=== PATIENT | female | born 1945 | race Caucasian/White ===

== ENCOUNTER 2017-03-01 06:52 | Outpatient (CLI) | payer MEDICARE, OTHER ==
[~2017-03-01] VITALS: Ht 167.6 cm; Wt 100.6 kg
--- NOTE | ~2017-03-01 | CATH ---
Cardiac Diagnostic Report Demographics Patient Name ANGELIQUE Martínez Gender Female Date of 1945 Age 71 year(s) Patient Number [id number] Date of Study 03/01/2017 Visit Number [id number] Room Number G6399 [place] [id number] Ht 167.64 cm Wt 100.6 kg Referring Magdarl Dumontmy Primary Physician Physician ILSE Performing Efstratiou Secondary Physician Physician Lucita June MD Diagnostic Efstratiou Assisting Physician Physician Lucita June MD Interventional Physician Inspector And Sorter Physician Findings and Conclusions Diagnostic Findings and Conclusion Diffuse Moderate CAD Diagnostic Recommendations Medical Treatment Procedure Description The patient was brought to the diagnostic cardiac catheterization-EP laboratory in the fasting, non-sedated state. Informed consent was obtained in the written and verbal form after the risks and benefits were explained. The patient had no further questions and agreed to proceed. The planned puncture-incision site(s) were shaved and prepped with ChloraPrep and draped in the usual sterile manner. Conscious sedation, supplemental oxygen, and pain control medications were delivered by a registered nurse under physician guidance. Surface ECG rhythm, blood pressure measurement, and pulse oximetry were monitored throughout the procedure. Arterial access. The access site was infiltrated with lidocaine. The vessel was entered with the Seldinger technique. A sheath was advanced into the vessel and used for catheter placement. Selective left coronary angiography. A catheter was advanced into the left coronary vessel ostium under Fluoroscopic guidance. Contrast was injected by hand. Images were obtained in multiple projections. Selective right coronary angiography. A catheter was advanced into the right coronary vessel ostium under fluoroscopic guidance. Contrast was injected by hand. Images were obtained in multiple projections. Left heart catheterization. A catheter was advanced across the aortic valve to the left ventricle under fluoroscopic guidance. Resting hemodynamics were obtained. Arterial artery hemostasis was achieved. The patient was transferred to a regular nursing floor via cart accompanied by a nurse. The patient left the laboratory in stable condition. Diagnostic Cath Status: Elective Procedure Procedure Type Diagnostic procedure:Angiography:, Coronary Angios w/[facility] Indications: Abnormal stress perfusion study. The procedure was explained in detail to the patient. Risks, complications and alternative treatments were reviewed. Written consent was obtained. Medications Reviewed with Patient prior to Procedure. Angiographic Findings Dominance: Right Cardiac Arteries and Lesion Findings LMCA: Normal (0% Stenosis). LAD: Abnormal.The 1st Diag is a very small caliber vessel. Lesion on Mid LAD: 30% stenosis . LCx: Abnormal.The 1st ob Estrellita appears abnormal. Lesion on Mid CX: 30% stenosis . Lesion on 1st Ob Estrellita% stenosis . RCA: Abnormal.Take off is anteriorly displaced. The R PDA appears abnormal. Lesion on Prox RCA: 40% stenosis . Lesion on Mid RCA: 50% stenosis . Lesion on R PDA: Proximal subsection.50% stenosis . Lesion on R PDA: Distal subsection.50% stenosis . Coronary Tree Procedure Data Procedure Date Date: 03/01/2017Start: 10:23 AMEnd: 11:00 AM Entry Locations - Retrograde Percutaneous access was performed through the Right Radial artery (Primary location). A 6 Fr sheath was inserted. Unsuccessful closure attempt was performed using: an R band. Hemostasis was successfully obtained using Mechanical Compression. Closure Comments: Darren placed 15ml air. Procedure Medications Order and Administration + + +-------+-------+ !Time !Medication !Dosage !Route ! + + +-------+-------+ !03/01/2017 !Fentanyl !25 mcg !I.V. ! !10:20 AM ! ! ! ! + + +-------+-------+ !03/01/2017 !PAE Radial Cocktail: Heparin 5000 units, ! !I.A. ! !10:24 AM !Nitroglycerin 200mcg, Verapamil 3 mg ! ! ! ! !(ACC_3) ! ! ! + + +-------+-------+ !03/01/2017 !Fentanyl !25 mcg !I.V. ! !10:34 AM ! ! ! ! + + +-------+-------+ Devices Used - A6 Fr. BS JR 4 Diag. Catheterwas used for:Right coronary angiography.Unable to cannulate the vessel. - A6 Fr. JJ 3DRC Diag. Catheterwas used for:Right coronary angiography. - A6 Fr. BS AL1 Diag. Catheterwas used for:Right coronary angiography. - A6 Fr. BS JL 3.5 Diag. Catheter. Contrast Material - Isovue [id number] ml Fluoroscopy Time: Diagnostic: 8:12 minutes. Total: 8:12 minutes. Fluoroscopy Dose: Diagnostic: 1063 mGy. Total: 1063 mGy. Estimated Blood Loss: 20 ml. Medical History Performed Procedures and Imaging Results - Stress testing with SPECT MPIwas performed on 02/13/2017. Results were: Positive. Risk/Extent of ischemia was: Intermediate risk. Allergies - Sulfa. Risk Factors The patient risk factors include:hypertension, last creatinine: 1.1 mg/dl, creatinine clearance: 75.58 ml/min and dyslipidemia. Admission Data Admission Date: 03/01/2017 Admission Time: 06:52 AM Admit Source: Other Insurance Payors: Medicare. Admission Medications + +------+------+ + + + + !Medication !Dosage!Times !Last !Last !Administered !Comments ! ! ! !Per !Delivery !Delivery ! ! ! ! ! !Day !Date !Time ! ! ! + +------+------+ + + + + !Aspirin ! ! ! ! !Yes ! ! !(any) ! ! ! ! ! ! ! + +------+------+ + + + + !BAILEY ! ! ! ! !Yes ! ! !Inhibitor ! ! ! ! ! ! ! !(any) ! ! ! ! ! ! ! + +------+------+ + + + + !Non-Statin ! ! ! ! !Yes ! ! !(any) ! ! ! ! ! ! ! + +------+------+ + + + + Clinical Evaluation Leading to Procedure - The patient's CAD presentation was assessed as: Unstable angina. - The patient's anginal syndrome during the past two weeks was assessed as: Class II according to the [place] [employer] Classification System (CCS). Snapshots Hemodynamics Condition: Rest O2 Consumption: Estimated: 193.60Heart Rate: 71 bpm Pressures (mmHg) +-----+ + !Site !Pressure ! +-----+ + !LV !135/3 ,18 ! +-----+ + !LV !126/2 ,15 ! +-----+ + !LV !130/0 ,15 ! +-----+ + !LV !130/0 ,13 ! +-----+ + !AO !143/59 (94) ! +-----+ + !LV !135/0 ,16 ! +-----+ + !AO !177/81 (130) ! +-----+ + !AO !139/63 (95) ! +-----+ + !AO !138/67 (97) ! +-----+ + Valve Gradients and Areas + +---------+---------+---------+ +---------+ + !Valve !Peak !Mean !Area !Index !Flow !Source ! + +---------+---------+---------+ +---------+ + !Aortic !0 !0 ! ! ! ! ! + +---------+---------+---------+ +---------+ + !Aortic !0 !0 ! ! ! ! ! + +---------+---------+---------+ +---------+ + Shunts Oxygen Values O2 Capacity 165.92 O2 Consumption 193.6 Signatures dtt: Lavinia Marnio dtd: 03/01/17 1023 Physician Self Edit
[~2017-03-01 06:52] MED LIST: ASPIRIN EC81 MG PO; CURCUMIN PO; DELTASONE5 MG PO; FISH OIL OMEGA1 EAC2 PO; IMURAN50 MG PO; LISINOPRIL-HCT1 EACH PO; MAGNESIUM500 MG PO; PRILOSEC20 MG PO; THERAGRAN-M1 TAB PO; VITAMIN D-32000 UNI1 PO
[2017-03-01 07:31] LABS: BASOPHIL % 0.6 %; EOSINOPHIL # 0.2 K/uL (0.0-0.5); EOSINOPHIL % 2.7 %; HEMATOCRIT 37.3 % (33.0-46.0); HEMOGLOBIN 12.2 g/dL (10.0-15.0); IMMATURE GRANULOCYTE % 0.3 %; LYMPHOCYTE # 1.8 K/uL (0.8-4.0); LYMPHOCYTE % 27.5 %; MCH 30.9 pg (27.0-34.0); MCHC 32.7 gm/dL (32.0-36.5); MCV 94.4 fl (83.0-98.0); MONOCYTE # 0.7 K/uL (0.0-1.0); MONOCYTE % 10.5 %; MPV 9.7 fl (9.4-12.4); NEUTROPHIL # (ANC) 3.7 K/uL (1.8-7.8); NEUTROPHIL % 58.4 %; NRBC % 0 /100WBC (0-0.00); PLATELET COUNT 251 K/uL (150-450); RBC 3.95 M/uL (3.50-5.50); RDW-CV 15.9 % (11.9-14.6); WBC 6.4 K/uL (4.0-11.0)
[2017-03-01 07:40] LABS: INR - (THERAPEUTIC) 1.02 (0.92-1.07); PROTIME 10.7 SECONDS (9.8-11.4); PTT 26 SECONDS (25-32)
[2017-03-01 08:26] LABS: ALBUMIN 3.3 gm/dL (3.5-5.0); CALCIUM 8.7 mg/dL (8.5-10.5); CREATININE 1.1 mg/dL (0.5-1.1); TOTAL BILIRUBIN 0.4 mg/dL (0.0-1.5); TOTAL PROTEIN 6.2 g/dL (6.0-8.4)
[2017-03-01] MEDS ORDERED: CRESTOR20 MG PO (11:18)
== END 2017-03-01 14:20 | disposition disaster alternative care site (69) ==
LOC: GPCU 06:52 → GCAT 06:52 → GPCU 06:53 → GPOC 07:00 → GCAT 14:20
PROVIDERS: Internal Medicine Cardiovascular Disease
PROC: 4A023N7 Measurement of Cardiac Sampling and Pressure, Left Heart, Percutaneous Approach (ICD-10-PCS; principal; 2017-03-01)
PROC: B210YZZ Fluoroscopy of Single Coronary Artery using Other Contrast (ICD-10-PCS; 2017-03-01)
DX: I25.110 Atherosclerotic heart disease of native coronary artery with unstable angina pectoris (principal); Z88.2 Allergy status to sulfonamides
CPT/HCPCS: C1894; J1644; J2001; J3010; J7030